=== PATIENT | female | born 1980 | race Caucasian/White ===

== ENCOUNTER → 2022-08-23 | Outpatient (CLI) | payer SELFPAY | END | disposition home or self-care (01) | PROVIDERS: Referring Provider Nurse Practitioner; Visit Provider Nurse Practitioner | DX: E03.9 Hypothyroidism, unspecified (principal) | CPT/HCPCS: 84443 ==

== ENCOUNTER → 2025-08-19 | Outpatient (CLI) | payer OTHER, SELFPAY ==
--- OUTSIDE RECORDS SUMMARY | 2025-08-19 22:06 | XMS RPT_ITS | CCD ---
Author Organization [facility] Care Team Providers Care Vessel Crew Member Name Role Phone Estefany Hong Attending Unavailable PROVIDER, UNKNOWN Referring Unavailable RHONDA SLATER Primary Care Unavailable PROVIDER, UNKNOWN Referring Unavailable RHONDA SLATER Primary Care Unavailable Judd Brar Attending Unavailable Jaiden RAIL MANAGER, Matthias Referring Unavailable Jaiden RAIL MANAGER, [place] Attending Unavailable Matthias Neville Primary Care Provider [phone] JOHN LEON Attending Unavailable MATTHIAS NEVILLE Primary Care Unavailable ESTEFANY FERRO Attending Unavail ESTEFANY Zelaya Referring Unavail able MATTHIAS NEVILLE Primary Care Unavailable GELY NICOLAS-ESTEFANY ARGUETA Attending Unavail able MATTHIAS NEVILLE Primary Care Unavailable MATTHIAS NEVILLE Primary Care Unavailable Allergies Allergy Classification Reported Allergen(s) Allergy Type Date of Onset Reaction(s) Facility (2 sources) Cat Hair Extract Drug Allergy 04-23-2015 [facility] (2 sources) Ibuprofen Drug Allergy 02-02-2024 [facility] (2 sources) Mefenamate Drug Allergy 03-25-2012 [facility] Medications Current Medications Medication Drug Class(es) Dates Sig (Normalized) Sig (Original) doxycycline hyclate 100 mg oral capsule (1 source) Tetracycline-cla ss Drug Start: 02-02-2024 End: 02-09-2024 take 1 capsule by mouth twice daily doxycycline (Vibramycin) 100 MG capsule Indications: Cellulitis of finger of left hand Take 1 capsule (100 mg) by mouth 2 times daily for 7 days. 14 capsule 0 02/02/2024 02/09/2024 Active levothyroxine sodium 0.05 mg oral tablet (3 sources) l-Thyroxine Start: 01-12-2024 take 1 tablet by mouth once daily levothyroxine (Synthroid, Levoxyl) 50 MCG tablet Take 50 mcg by mouth daily. 01/12/2024 Active Start: 08-14-2022 take 25 ug by mouth once daily Levothyroxine Active 25 MCG PO DAILY August 14, 2022 12:00am mupirocin 0.02 mg/mg topical ointment (1 source) RNA Synthetase Inhibitor Antibacterial Start: 02-02-2024 End: 02-09-2024 mupirocin (Bactroban) 2 % ointment Indications: Cellulitis of finger of left hand Apply topically 2 times daily for 7 days. 1 g 0 02/02/2024 02/09/2024 Active Problems Active Problems Problem Classification Problem Date Documented Da te Episodic/Chronic Nonmalignant breast conditions (2 sources) Other specified disorders of breast; Translations: [Other specified disorders of breast] Onset: 12-06-2018 Episodic Nutritional deficiencies (2 sources) Vitamin D deficiency; Translations: [Vitamin D deficiency, unspecified] Onset: 12-31-2019 07-17-2022 Chronic Nutritional deficiencies (1 source) Serum iron low; Translations: [Iron deficiency] Episodic Other screening for suspected conditions (not mental disorders or infectious disease) (4 sources) Other abnormal and inconclusive findings on diagnostic imaging of breast; Translations: [Encounter for screening mammogram for malignant neoplasm of breast] Onset: 12-06-2018 Episodic Residual codes; unclassified (2 sources) Family history of malignant neoplasm of breast; Translations: [Family history of malignant neoplasm of breast] Onset: 12-06-2018 Episodic Skin and subcutaneous tissue infections (3 sources) Cellulitis of finger of left hand; Translations: [Cellulitis of left finger] Onset: 02-02-2024 02-02-2024 Episodic Thyroid disorders (4 sources) Hypothyroidism; Translations: [Hypothyroidism, unspecified] Onset: 12-31-2019 07-17-2022 Chronic Past or Other Problems Problem Classification Problem Date Documented Da te Episodic/Chronic Other skin disorders (2 sources) Alopecia; Translations: [Nonscarring hair loss, unspecified] Onset: 04-24-2015 07-17-2022 Episodic Results Test Name Value Interpretation Reference Range Facil ity [facility] Physician Progress No tomas 01-22-2025 [facility] Physician Progress Note SITA BORGES :1980 [facility]:[phone] Registration Date:01/16/2025 Assessment/Plan This Visit Diagnosis 1. Well woman exam Z01.419 2. Colon cancer screening Z12.11 recommended colonoscopy 3. Family history of breast cancer in male Z80.3 recommended genetic testing 4. Perimenopause N95.1 reviewed expectations Medication Reconciliation What When Instructions Unchanged levothyroxine (levothyroxine 50 mcg (0.05 mg) oral tablet) 0 Refill(s) Chief Complaint Annual, 08/31/23 pap neg/hpv neg mammo-neg 11/22/24 lmp: unsure within the month History of Present Illness Annual not due for pap mammo 2024 regular periods recommend BRCA due for GF has breast cancer she declines- I tried to encourage she states she wouldn't want all of the extra testing anyway encouraged her for her children and try to prevent the need for chemo and radiation more intense screening all of her uncles have prostate cancer she doesn't know if they were tested again recommend myrisk testing hotflashes crazy normal periods menarche 14 perimenopause discussed recommended colonoscopy screening she has hemorrhoids gave her digestive disease info she wanted a female has neck pain- ear pain no LAD Physical Exam Vitals & Measurements BP: 120/70 HT: 160 cm WT: 60.7 kg BMI: 23.71 Depression Screening Scores Initial Depression Screen Score: 0 (01/16/25 09:43:00) Fall Risk Assessment Is the patient ambulatory (mobile): Yes (01/16/25 09:43:00) Have you had a fall within the past: No (01/16/25 09:43:00) Have you had 2 or more falls in the past: No (01/16/25 09:43:00) Constitutional: Appears appropriate for age, non-toxic, and comfortable. No signs of apparent distress present. Speech is clear and appropriate. Stand comfortably erect. Patient is cooperative. VSS and reviewed Eyes: Full range of extra-ocular motion. Conjunctivae clear. Neck: supple and no thyromegaly Respiratory: Chest expansion is adequate bilaterally. Abdomen: Soft and Non-tender, Non distended Musculoskeletal: Walks with a normal gait. Motor strength is intact Ext: No C/C/E Skin: Warm and dry with no evidence of unusual rashes or suspicious lesions. Neurological: Alert and oriented x 3. Mood is normal. Extremities: No clubbing, Cyanosis or edema BACK SEWER EXAM: Breast exam: normal bilateral breast tissue, no skin changes no masses and no nipple discharge, no LAD Pelvic Exam: Ext Gen: normal Vulva anatomy no rash Perineum: no lesions and intact Vagina: no cystocele or rectocele vaginal mucosa healthy pink Cervix: no CMT, discharge present normal Bladder: non tender on palpation Uterus: normal size and mobile midline, NT adnexa: NT and no masses Pelvic muscles: normal muscle tauntness/support OB History History (3,0,1,3) # 1 Baby 1 Outcome Date: 2008 Outcome or Result: Spontaneous Gest Age: -- Outcome: Demise Sex: -- # 2 Baby 1 Outcome Date: 08/31/2010 Outcome or Result: Vaginal Gest Age: 39 weeks Outcome: Live Sex: Female Wt: 2665 g Child's Name: [facility]: Dr. Vera # 3 Baby 1 Outcome Date: 08/13/2012 Outcome or Result: Vaginal Gest Age: 40 weeks Outcome: Live Sex: Male Wt: 3799 g Complications: Shoulder dystocia Child's Name: [facility]: Dr. Brar # 4 Baby 1 Outcome Date: 06/15/2014 Outcome or Result: Gest Age: 40 weeks Outcome: Live Sex: Male Wt: 3969 g Hospital: Dr. 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 Pancreatic cancer: Grandfather. Prostate cancer..: Grandfather. Health Status Family Member(s) Normal [facility] Phone Msgon 03-10-2025 Phone Msg - From: Carolineandria Catrachita Sent: 12/09/2024 11:46:32 EDT Subject: RESCHEDULE Caller Name: SITA BORGES; Caller Number: H L/V/M TO RESCHEDULE ON 12/27/2024 DO TO OUT OF OFFICE Normal [facility] MAMM DIAG BI TOMOon 11-22-19 MAMM DIAG BI ZIYAD DIAGNOSTIC BILATERAL DIGITAL MAMMOGRAM WITH TOMOSYNTHESIS. UNILATERAL RIGHT BREAST ULTRASOUND, LIMITED. ULTRASOUND OF THE RIGHT AXILLA. Clinical History : Pain/tenderness in the lower outer right breast for 2 months. Persistent large right axillary lymph nodes which and large and become tender around menses. Comparison Studies: 01/15/2021. Mammographic findings: 2D and tomosynthesis images were reviewed at 1 mm slice thickness. The breasts are heterogeneously dense, which may obscure small masses. No suspicious masses or suspicious calcifications are identified in either breast. Normal-sized lymph nodes are seen in both axillae. What may be an enlarged lymph node or fatty tissue is seen more superficially in the upper right axilla. The digital mammogram has been reviewed with the aid of CAD. Targeted ultrasound of the area of concern in the right breast, in the 7:00 position, shows dense fibroglandular tissue. No discrete solid or cystic lesion or abnormal acoustic shadowing is seen. Ultrasound of the right axilla shows 2 normal-appearing lymph nodes with fatty chavez and thin cortices. These measure 0.8 x 0.5 x 0.6 cm in diameter with a cortical thickness of 1 mm, and 0.9 x 0.5 x 0.8 cm in diameter with a cortical thickness of 1 mm. No enlarged or thickened lymph nodes are seen. The palpable lesions appear to be fatty tissue without circumscribed margins. IMPRESSION AND RECOMMENDATION: No mammographic evidence of malignancy. No apparent axillary adenopathy. Dense fibroglandular tissue in the area of pain in the 7:00 position of the right breast without discrete mass. Normal right axillary lymph nodes. Fatty tissue in the areas of concern in the right axilla. Recommendation is for the patient to return in one year for annual mammogram with tomosynthesis. Category 2: Benign finding BREAST TISSUE CAN BE EITHER DENSE OR NOT DENSE. DENSE TISSUE MAKES IT HARDER TO FIND BREAST CANCER ON A MAMMOGRAM AND ALSO RAISES THE RISK OF DEVELOPING BREAST CANCER. YOUR BREAST TISSUE IS DENSE. IN SOME PEOPLE WITH DENSE TISSUE, OTHER IMAGING TESTS IN ADDITION TO A MAMMOGRAM MAY HELP FIND CANCERS. TALK YOUR HEALTHCARE PROVIDER ABOUT BREAST DENSITY, RISKS FOR BREAST CANCER, AND YOUR INDIVIDUAL SITUATION. Electronically signed by: Kye Ellis MD 11/22/2024 11:16 AM EST RP Normal [facility] Comment on above: Order Comment: Order ed on Fin# [id number] Result Comment: Tech nologist: MATHEW Dictated By: KYE ELLIS MD Signed By: KYE ELLIS MD Signed Out: 11/22/24 17:51:48 US BREAST RIGHT LIMITEDon US BREAST RIGHT LIMITED DIAGNOSTIC BILATERAL DIGITAL MAMMOGRAM WITH TOMOSYNTHESIS. UNILATERAL RIGHT BREAST ULTRASOUND, LIMITED. ULTRASOUND OF THE RIGHT AXILLA. Clinical History : Pain/tenderness in the lower outer right breast for 2 months. Persistent large right axillary lymph nodes which and large and become tender around menses. Comparison Studies: 01/15/2021. Mammographic findings: 2D and tomosynthesis images were reviewed at 1 mm slice thickness. The breasts are heterogeneously dense, which may obscure small masses. No suspicious masses or suspicious calcifications are identified in either breast. Normal-sized lymph nodes are seen in both axillae. What may be an enlarged lymph node or fatty tissue is seen more superficially in the upper right axilla. The digital mammogram has been reviewed with the aid of CAD. Targeted ultrasound of the area of concern in the right breast, in the 7:00 position, shows dense fibroglandular tissue. No discrete solid or cystic lesion or abnormal acoustic shadowing is seen. Ultrasound of the right axilla shows 2 normal-appearing lymph nodes with fatty chavez and thin cortices. These measure 0.8 x 0.5 x 0.6 cm in diameter with a cortical thickness of 1 mm, and 0.9 x 0.5 x 0.8 cm in diameter with a cortical thickness of 1 mm. No enlarged or thickened lymph nodes are seen. The palpable lesions appear to be fatty tissue without circumscribed margins. IMPRESSION AND RECOMMENDATION: No mammographic evidence of malignancy. No apparent axillary adenopathy. Dense fibroglandular tissue in the area of pain in the 7:00 position of the right breast without discrete mass. Normal right axillary lymph nodes. Fatty tissue in the areas of concern in the right axilla. Recommendation is for the patient to return in one year for annual mammogram with tomosynthesis. Category 2: Benign finding BREAST TISSUE CAN BE EITHER DENSE OR NOT DENSE. DENSE TISSUE MAKES IT HARDER TO FIND BREAST CANCER ON A MAMMOGRAM AND ALSO RAISES THE RISK OF DEVELOPING BREAST CANCER. YOUR BREAST TISSUE IS DENSE. IN SOME PEOPLE WITH DENSE TISSUE, OTHER IMAGING TESTS IN ADDITION TO A MAMMOGRAM MAY HELP FIND CANCERS. TALK YOUR HEALTHCARE PROVIDER ABOUT BREAST DENSITY, RISKS FOR BREAST CANCER, AND YOUR INDIVIDUAL SITUATION. 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 SHE STATED SHE ALWAYS SETS OFF THE ALARMS AND HAS VERY DENSE BREAST. SHE WOULD LIKE TO DIET CONSULTANT THE ORDER ON 10/24/24. SHE SCHEDULE HER ANNUAL WITH DR HONG FOR 12/27/24. BEST CONTACT NUMBER IS [phone] THANK YOU RH From: Carla Rizvi To: ESTEFANY FERRO; Sent: 10/23/2024 11:50:40 EST Subject: FW: DIAGNOSTIC MAMM ORDER Actions: Message Caller Name: SITA BORGES; Caller Number: H Submitted: Order:US BREAST RIGHT LIMITED Details: 10/23/2024, Routine, FIBROCYSTIC BREAST DISEASE, Ambulatory, Dense breast Signed by ESTEFANY FERRO 10/23/2024 12:51:00 EST Submitted: Order:MAMM DIAG BI ZIYAD Details: 10/23/2024, Routine, FIBROCYSTIC BREAST DISEASE, Ambulatory, Dense breast Signed by ESTEFANY FERRO 10/23/2024 12:50:00 EST Submitted: Order:US BREAST LEFT LIMITED Details: 10/23/2024, Routine, FIBROCYSTIC BREAST DISEASE, Ambulatory, Dense breast Signed by ESTEFANY FERRO 10/23/2024 12:51:00 EST called patient to let her know will apply to deductible and sometime the Breast centers will not do a bilateral diagnostic without a recent screening. It looks like it has been 3 years. Identified vm- message left Normal [facility] CBC W Auto Differential pane l (Bld)on 07-20-2024 Basophils (Bld) [#/Vol] 33 10*3/uL [employer] Basophils/100 WBC (Bld) 0.5 % [facility] Eosinophils (Bld) [#/Vol] 130 10*3/uL [facility] Eosinophils/100 WBC (Bld) 2.0 % [facility] Erythrocyte distribution width (RBC) [Ratio] 13.4 % 11.0 - 15.0 % [employer] [facility] Hematocrit (Bld) [Volume fraction] 42.7 % 35.0 - 45.0 % [facility] Hemoglobin (Bld) [Mass/Vol] 13.6 g/dL 11.7 - 15.5 g/dL [facility] Interpretation and review of laboratory results Abnormal [facility] Lymphocytes (Bld) [#/Vol] 9 10*3/uL [facility] Lymphocytes/100 WBC (Bld) 32.6 % [facility] MCH (RBC) [Entitic mass] 26.4 pg Low 27.0 - 33.[address] [facility] MCHC (RBC) [Mass/Vol] 31.9 g/dL Low 32.0 - 36.0 g/dL [facility] Comment on above: For adults, a slight decrease in the calculated MCHC value (in the range of 30 to 32 g/dL) is most likely not clinically significant; however, it should be interpreted with caution in correlation with other red cell parameters and the patient's clinical condition. MCV (RBC) [Entitic vol] 82.9 fL 80.0 - 100.0 fL [facility] Monocytes (Bld) [#/Vol] 507 10*3/uL [facility] Monocytes/100 WBC (Bld) 7.8 % [facility] Neutrophils (Bld) [#/Vol] 3712 10*3/uL [facility] Neutrophils/100 WBC (Bld) 57.1 % [facility] Platelet mean volume (Bld) [Entitic vol] 11.5 fL 7.5 - 12.5 fL [facility] Platelets (Bld) [#/Vol] 245 10*3/uL [facility] RBC (Bld) [#/Vol] 5.15 10*6/uL High [facility] WBC (Bld) [#/Vol] 6.5 10*3/uL [facility] Comprehensive metabolic 1998 panelon 07-20-2024 Albumin [Mass/Vol] 4.2 g/dL 3.6 - 5.1 g/dL [facility] Albumin/Globulin [Mass ratio] 1.4 {ratio} [facility] ALP [Catalytic activity/Vol] 68 U/L 31 - 125 U/L [facility] ALT [Catalytic activity/Vol] 11 U/L 6 - 29 U/L [facility] AST [Catalytic activity/Vol] 16 U/L 10 - 35 U/L [facility] Bilirubin [Mass/Vol] 0.4 mg/dL 0.2 - 1.2 mg/dL [facility] Calcium [Mass/Vol] 9.0 mg/dL 8.6 - 10. 2 mg/dL [facility] Chloride [Moles/Vol] 102 mmol/L 98 - 110 mmol/L [facility] CO2 [Moles/Vol] 28 mmol/L 20 - 32 mmol/L [facility] Creatinine [Mass/Vol] 0.73 mg/dL 0.50 - 0.99 mg/dL [facility] GFR/1.73 sq M.predicted among non-blacks MDRD (S/P/Bld) [Vol rate/Area] 103 mL/min/{1.73_m2} > OR = 60 mL/min/1.73m2 [facility] Globulin (S) [Mass/Vol] 2.9 g/dL [facility] Glucose [Mass/Vol] 86 mg/dL 65 - 139 mg/dL [facility] Comment on above: Non-fasting reference interval Potassium [Moles/Vol] 4.6 mmol/L 3.5 - 5.3 mmol/L [facility] Protein [Mass/Vol] 7.1 g/dL 6.1 - 8.1 g/dL [facility] Sodium [Moles/Vol] 138 mmol/L 135 - 146 mmol/L [facility] Urea nitrogen [Mass/Vol] 10 mg/dL 7 - 25 mg/dL [facility] Urea nitrogen/Creatinine [Mass ratio] SEE NOTE: [facility] Comment on above: Not Reported: BUN an d Creatinine are within reference range. No Panel Informationon 07-20 [facility] TSHon 07-20-2024 TSH Qn 1.71 m[IU]/L mIU/L [facility] Comment on above: Reference Range > or = 20 Years 0.40-4.50 Ranges First trimester 0.26-2.66 Second trimester 0.55-2.73 Third trimester 0.43-2.91 A duplicate report has been faxed to the following: Faxed to: [phone] on: 07/20/24 01:38 Office Visiton 02-02-2024 Follow-up visit [id number] Sita Borges 1980 F Date Provider Department [id number] Family History Problem Relation Age of Onset No Known Problems Son Other Other Comments: nephew-esophageal atresia No Known Problems Maternal Grandfather No Known Problems Father No Known Problems Daughter No Known Problems Paternal Grandmother Breast cancer Maternal Grandmother No Known Problems Son No Known Problems Sister Cancer Paternal Grandfather Comments: pancreatic, breast No Known Problems Mother No Known Problems Brother Family Status - Relation Status Age at Son Alive Other Maternal Grandfather Father Alive Daughter Alive Paternal Grandmother Maternal Grandmother Son Alive Sister Alive Paternal Grandfather Mother Alive Brother Alive Level of Service:01373 [place] OFFICE/OUTPATIENT ESTABLISHED LOW MDM 20 MIN Reason for Visit and Comments: Hand Pain [119612] - Left hand pain; started monday [facility] Progress Noteon 02-02-2024 Progress Note Subjective: Patient: Sita Borges is a 43 y.o. female Patient presents to urgent care today with concerns for left hand pain X 3 days. Patient states left hand pain started on Monday night. Patient denies any injury or trauma to left hand. Patient states she was getting a crown done at her dentist on Monday and was squeezing a stress ball during procedure. However patient does have a small superficial laceration to left hand below the left fifth finger PIP joint that is healing and starting to get scabbed over.. Patient has small amount of erythema and edema to the area and is slightly tender to palpation. Patient has full range of motion of left wrist and left hand. Patient denies any fever, chills, nausea, vomiting, diarrhea, shortness of breath and chest pain. Review of Systems Constitutional: Negative for chills, fatigue and fever. HENT: Negative for congestion, ear discharge, ear pain, rhinorrhea, sinus pressure, sinus pain, sore throat and trouble swallowing. Respiratory: Negative for cough, chest tightness, shortness of breath and wheezing. Cardiovascular: Negative for chest pain and palpitations. Gastrointestinal: Negative for diarrhea, nausea and vomiting. Skin: Positive for wound. Neurological: Negative for dizziness, syncope, weakness, light-headedness and headaches. Allergies Allergen Reactions Ibuprofen Swelling Facial Swelling Mefenamic Acid Hives Cat Hair Extract Hives Current Outpatient Medications on File Prior to Visit Medication Sig Dispense Refill levothyroxine (Synthroid, Levoxyl) 50 MCG tablet Take 50 mcg by mouth daily. No current facility-administered medications on file prior to visit. Past Medical History: Diagnosis Date Acquired hypothyroidism 04/28/2015 Alopecia 04/24/2015 Constipation Fracture Lt arm 4th grade Localized swelling, mass and lump, neck 01/30/2019 seen by ENT- CT neck declined by patient (enlarged nodes) Threatened premature labor Vitamin D deficiency 12/31/2019 Social History Tobacco Use Smoking status: Never Smokeless tobacco: Never Substance Use Topics Alcohol use: No Alcohol/week: 0.0 standard drinks of alcohol Objective: BP (!) 142/82 Pulse 94 Temp 36.6 ?C (97.8 ?F) Resp 17 Wt 124 lb (56.2 kg) SpO2 98% BMI 21.97 kg/m? Physical Exam Vitals and nursing note reviewed. Constitutional: General: She is awake. She is not in acute distress. Appearance: Normal appearance. She is normal weight. She is not ill-appearing or toxic-appearing. Cardiovascular: Rate and Rhythm: Normal rate and regular rhythm. Pulmonary: Effort: Pulmonary effort is normal. Breath sounds: Normal breath sounds. Musculoskeletal: General: Normal range of motion. Skin: General: Skin is warm and dry. Findings: Wound present. Comments: Patient has a small less than 0.5 cm superficial laceration to the area noted above. Area around healing scabbed over laceration is erythematous and slightly edematous. Area is slightly tender to palpation and warm to palpation. No purulent drainage noted. Neurological: General: No focal deficit present. Mental Status: She is alert and oriented to person, place, and time. Mental status is at baseline. Psychiatric: Mood and Affect: Mood normal. Behavior: Behavior normal. Behavior is cooperative. Thought Content: Thought content normal. Judgment: Judgment normal. Assessment 1. Cellulitis of finger of left hand Plan Diagnoses and all orders for this visit: Cellulitis of finger of left hand - doxycycline (Vibramycin) 100 MG capsule; Take 1 capsule (100 mg) by mouth 2 times daily for 7 days. - mupirocin (Bactroban) 2 % ointment; Apply topically 2 times daily for 7 days. Due to patient's symptoms and clinical evaluation I have high suspicion for cellulitis at this time. Educated patient on medications prescribed today in office and education provided in AVS.I also advised patient to monitor for worsening signs of infection including: worsening redness, swelling, erythematous streaking, new onset drainage, foul odor, and or flu like symptoms such as fever, chills and body aches. If patient experiences any of the aforementioned symptoms, prompt ED evaluation recommended as patient may require IV antibiotics at that time. At the present time, I feel conservative management with oral antibiotics, as well as keeping site clean and dry, doing necessary dressing changes and monitoring for worsening symptoms to be appropriate at this time given mild nature of presentation. Educated patient to follow-up with PCP or proceed to ER as discussed above for worsening or persistent symptoms. Patient understands and agreeable to treatment plan. John Leon NP 02/02/24 1:13 PM If symptoms do not improve, worsen, or new symptoms develop, see PCP for further evaluation. Normal [facility] Thyroid Stim Hormone (TSH)on 08-24-2022 TSH 1.90 uIU/mL Normal 0.358-3.74 [facility] Comment on above: Performed By: #### L [phone] #### [facility] [address] 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 Allergies As of Date: 12/22/2020 Noted Allergy Reaction PONSTEL (MEFENAMIC ACID) 03/25/2012 4 - Hives Date Reviewed: 08/12/2019 Reviewed by: Eliana (Rn) MICKY Cueto - Fully Assessed Reason for Visit: Appointment [186] Prescriptions as of 12/22/2020 Sig: PAMPRIN MULTI-SYMPTOM ORAL Take by mouth. 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 REASON FOR EXAM: clinical finding. INDICATED PROBLEM: Indicated problem(s): right breast palpable abnormality for 6 weeks Right breast pain. PROCEDURE: MG BREAST TOMOSYNTHESIS BL: OCTOBER 15, 2019 - 2D/3D Procedure 3D Bilateral CC and MLO view(s) were taken. 2D Bilateral CC and MLO view(s) were taken. Prior study comparison: December 19, 2018, right breast MG breast tomosynthesis right performed at [facility]. December 06, 2018, bilateral MG breast tomosynthesis bl scr performed at [facility]. November 17, 2017, bilateral MG breast tomosynthesis bl performed at [facility]. November 17, 2017, right breast US breast limited right performed at [facility]. TISSUE DENSITY: The breast tissue is heterogeneously dense, which could obscure underlying abnormalities. FINDINGS: This is a 39-year-old who presents with right axillary palpable lumps as well as a right breast palpable lump. DIAGNOSTIC BILATERAL BREAST MAMMOGRAM: There are no suspicious masses and no suspicious calcifications present in either breast. Symmetric bilateral similar appearing lymph nodes are present with normal morphology. An asymmetry in the lateral aspect of the left breast posteriorly represents overlapping glandular tissue on tomosynthesis imaging. The patient placed a round open skin marker at the site of the palpable right breast lump which overlies the central lateral aspect at middle to posterior depth. Deep to the marker overlapping glandular tissue is present. A round open skin marker was placed at the site of the right axillary lump which overlies the pectoralis muscle. Symmetric lymph nodes are present deep to the marker. TARGETED RIGHT BREAST AND AXILLARY ULTRASOUND. The patient points to the palpable lump/focal pain at the 9:00 position 7 cm from the nipple (central lateral) with imaging demonstrating overlapping glandular tissue. The patient points to the axillary palpable lumps with imaging demonstrating two lymph nodes with normal morphology and no thickening of the cortex. The lymph nodes measure 1.3 x 0.9 x 0.7 cm and 0.9 x 0.8 x 0.4 cm. Markings on images: BB's = Nipples; skin lesions Open klamath = Palpable Line = Scar US BREAST LIMITED RIGHT: OCTOBER 15, 2019 - Standard views. Technologist: Zarina Boyle RDMS 2D digital mammography and tomosynthesis imaging were performed and reviewed with CAD. ASSESSMENT: Category 2 Benign (Overall) MG Ziyad Diag-Bl: Category 2 benign finding. 1. No mammographic evidence of malignancy in either breast. 2. The right breast palpable lump with associated focal pain represents overlapping glandular tissue on imaging. 3. The right axillary palpable lumps represent lymph nodes with normal morphology. RECOMMENDATION: Clinical correlation of the right breast. Routine screening mammogram of both breasts in 1 year. Report Dictated on Final Signed Date and Time: 10/15/2019 12:09 pm Signed by: MD JUAN JENNIFER R [facility] US Breast Limited Righton US Breast Limited Right Patient Name: SITA BORGES Ultrasound Exam Date/Time 10/15/2019 12:08:08 EST Exam US Breast Limited Right Ordering Physician [id number] MONACO Accession Number [id number] CPT4 Codes 20460 () Reason For Exam Palp Lumps Report TIME SINCE LAST MAMMOGRAM: Last mammogram was performed 10 months ago. REASON FOR EXAM: clinical finding. INDICATED PROBLEM: Indicated problem(s): right breast palpable abnormality for 6 weeks Right breast pain. PROCEDURE: MG BREAST TOMOSYNTHESIS BL: OCTOBER 15, 2019 - 2D/3D Procedure 3D Bilateral CC and MLO view(s) were taken. 2D Bilateral CC and MLO view(s) were taken. Prior study comparison: December 19, 2018, right breast MG breast tomosynthesis right performed at [facility]. December 06, 2018, bilateral MG breast tomosynthesis bl scr performed at [facility]. November 17, 2017, bilateral MG breast tomosynthesis bl performed at [facility]. November 17, 2017, right breast US breast limited right performed at [facility]. TISSUE DENSITY: The breast tissue is heterogeneously dense, which could obscure underlying abnormalities. FINDINGS: This is a 39-year-old who presents with right axillary palpable lumps as well as a right breast palpable lump. DIAGNOSTIC BILATERAL BREAST MAMMOGRAM: There are no suspicious masses and no suspicious calcifications present in either breast. Symmetric bilateral similar appearing lymph nodes are present with normal morphology. An asymmetry in the lateral aspect of the left breast posteriorly represents overlapping glandular tissue on tomosynthesis imaging. The patient placed a round open skin marker at the site of the palpable right breast lump which overlies the central lateral aspect at middle to posterior depth. Deep to the marker overlapping glandular tissue is present. A round open skin marker was placed at the site of the right axillary lump which overlies the pectoralis muscle. Symmetric lymph nodes are present deep to the marker. TARGETED RIGHT BREAST AND AXILLARY ULTRASOUND. The patient points to the palpable lump/focal pain at the 9:00 position 7 cm from the nipple (central lateral) with imaging demonstrating overlapping glandular tissue. The patient points to the axillary palpable lumps with imaging demonstrating two lymph nodes with normal morphology and no thickening of the cortex. The lymph nodes measure 1.3 x 0.9 x 0.7 cm and 0.9 x 0.8 x 0.4 cm. Markings on images: BB's = Nipples; skin lesions Open klamath = Palpable Line = Scar US BREAST LIMITED RIGHT: OCTOBER 15, 2019 - Standard views. Technologist: Zarina Boyle RDMS 2D digital mammography and tomosynthesis imaging were performed and reviewed with CAD. ASSESSMENT: Category 2 Benign (Overall) MG Ziyad Diag-Bl: Category 2 benign finding. 1. No mammographic evidence of malignancy in either breast. 2. The right breast palpable lump with associated focal pain represents overlapping glandular tissue on imaging. 3. The right axillary palpable lumps represent lymph nodes with normal morphology. RECOMMENDATION: Clinical correlation of the right breast. Routine screening mammogram of both breasts in 1 year. Report Dictated on Final Signed Date and Time: 10/15/2019 12:09 pm Signed by: MD DRAKE, SITA Mccullough [facility] 08-12-2019 [facility] HNO ID: [id number] Author: HAYDEN Croft (Ct) Service: ? Author Type: Clinical Incinerator Attendant Type: Allied Health Filed: 08/12/2019 3:55 AM Note Text: Radiology Service Progress Note PATIENT NAME: Sita Borges DATE OF SERVICE: August 12, 2019 TIME: 3:55 AM PATIENT IDENTITY VERIFICATION COMPLETED USING TWO (2) METHODS: Name and Date of confirmed by patient verbally. PATIENT GENDER DATA: Female. status: : No status: N/A PATIENT RELEVANT IMPLANT DATA REVIEWED: Not Applicable RADIOLOGY DEPARTMENT: General X-ray: Exam(s) Completed: Lower Extremity X-Ray(s): Foot, Right: PERIPHERAL IV DATA: Not applicable SIGNED BY: HAYDEN Croft August 12, 2019 3:55 AM [facility] CBC and Differentialon 08-12 Abs Baso <0.03 Normal <0.11 [facility] Comment on above: Performed By: #### C BCJORDAN CMP #### [facility] [address] [place], [place] [id number] Abs [place] 0.90 k/uL High <0.87 [facility] Comment on above: Performed By: #### C BCMIHAELAF CMP #### [facility] [address] [place], [place] [phone] Abs Neut 4.30 k/uL Normal 1.45-7.50 [facility] Comment on above: Performed By: #### C BCDIF CMP #### [facility] [address] [place], [place] [phone] Basophils/100 WBC (Bld) 0.3 % Normal [facility] Comment on above: Performed By: #### C BCJORDAN CMP #### [facility] [address] [phone] Eosinophils (Bld) [#/Vol] 0.28 10*3/uL Normal <0.46 [facility] Comment on above: Performed By: #### C BCDIF, CMP #### [facility] [address] [phone] Eosinophils/100 WBC (Bld) 3.6 % Normal [facility] Comment on above: Performed By: #### C BCDIF, CMP #### [facility] [address] Erythrocyte distribution width (RBC) [Ratio] 14.1 % Normal 11.5-15.0 [facility] Comment on above: Performed By: #### C BCMIHAELAF CMP #### [facility] [address] [phone] Hematocrit (Bld) [Volume fraction] 38.7 % Normal 36.0-46.0 [facility] Comment on above: Performed By: #### C BCDIF, CMP #### [facility] [address] Hemoglobin (Bld) [Mass/Vol] 12.1 g/dL Normal 11.5-15.5 [facility] Comment on above: Performed By: #### C BCDIF, CMP #### [facility] [address] [place], [place] [phone] Lymphocytes (Bld) [#/Vol] 2.24 10*3/uL Normal 1.00-4.00 [facility] Comment on above: Performed By: #### C BCDIF, CMP #### [facility] [address] [phone] Lymphocytes/100 WBC (Bld) 28.9 % Normal [facility] Comment on above: Performed By: #### C BCDIF, CMP #### [facility] [address] MCH (RBC) [Entitic mass] 25.3 pG Low 26.0-34.0 [facility] Comment on above: Performed By: #### C BCDIF, CMP #### [facility] [address] MCHC (RBC) [Mass/Vol] 31.3 g/dL Normal 30.5-36.0 [facility] Comment on above: Performed By: #### C BCDIF, CMP #### [facility] [address] [phone] MCV (RBC) [Entitic vol] 81.0 fL Normal 80.0-100.0 [facility] Comment on above: Performed By: #### C BCDIF, CMP #### [facility] [address] [phone] Monocytes/100 WBC (Bld) 11.6 % Normal [facility] Comment on above: Performed By: #### C BCDIF, CMP #### [facility] [address] Neutrophils/100 WBC (Bld) 55.6 % Normal [facility] Comment on above: Performed By: #### C BCDIF, CMP #### [facility] [address] Platelet mean volume (Bld) [Entitic vol] 11.5 fL Normal 9.0-12.7 [facility] Comment on above: Performed By: #### C BCDIF, CMP #### [facility] [address] [phone] Platelets (Bld) [#/Vol] 190 10*3/uL Normal 150-400 [facility] Comment on above: Performed By: #### C BCDIF, CMP #### [facility] [address] [phone] RBC (Bld) [#/Vol] 4.78 10*6/uL Normal 3.90-5.20 [facility] Comment on above: Performed By: #### C BCDIF, CMP #### [facility] [phone] WBC (Bld) [#/Vol] 7.74 10*3/uL Normal 3.70-11.00 [facility] Comment on above: Performed By: #### C BCDIF, CMP #### [facility] [phone] Comp Metabolic Panelon 08-12 Albumin [Mass/Vol] 4.1 g/dL Normal 3.9-4.9 [facility] Comment on above: Performed By: #### C BCDIF, CMP #### [facility] [address] [address] ALP [Catalytic activity/Vol] 63 U/L Normal 34-123 [facility] Comment on above: Performed By: #### C BCDIF, CMP #### [facility] [address] [address] ALT [Catalytic activity/Vol] 10 U/L Normal 7-38 [facility] Comment on above: Performed By: #### C BCDIF, CMP #### [facility] [address] [address] Anion gap [Moles/Vol] 11 mmol/L Normal 9-18 [facility] Comment on above: Performed By: #### C BCDIF, CMP #### [facility] [address] [address] AST [Catalytic activity/Vol] 18 U/L Normal 13-35 [facility] Comment on above: Performed By: #### C BCDIF, CMP #### [facility] [address] [address] Bilirubin [Mass/Vol] 0.2 mg/dL Normal 0.2-1.3 [facility] Comment on above: Performed By: #### C BCDIF, CMP #### [facility] [address] [address] Calcium [Mass/Vol] 9.2 mg/dL Normal 8.5-10.2 [facility] Comment on above: Performed By: #### C BCDIF, CMP #### [facility] [address] [address] Chloride [Moles/Vol] 104 mmol/L Normal 97-105 [facility] Comment on above: Performed By: #### C BCDIF, CMP #### [facility] [address] [address] CO2 [Moles/Vol] 26 mmol/L Normal 22-30 [facility] Comment on above: Performed By: #### C BCDIF, CMP #### [facility] [address] [address] Creatinine [Mass/Vol] 0.71 mg/dL Normal 0.58-0.96 [facility] Comment on above: Performed By: #### C FIDELF, ANN-MARIE #### [facility] [address] [facility] [phone] eGFR- Amer. >60 Normal [facility] Comment on above: Performed By: #### C BCMIHAELAF, CMP #### [facility] [address] [facility] [phone] GFR/1.73 sq M predicted among non-blacks MDRD (S/P/Bld) [Vol rate/Area] mL/min/{1.73_m2} Normal [facility] Comment on above: Result Comment: eGFR (Estimated GFR) Units of measure: mL/min/1.73 meters squared eGFR is derived from the reexpressed MDRD Study equation using the following parameters: serum creatinine, age, gender and race. The creatinine assay has been calibrated to be traceable to IDMS. An eGFR <60 mL/min/1.73m2 for >3 months is consistent with chronic kidney disease. Refer to KDOQI guidelines for clinical interpretation. In patients with unstable renal function, e.g. those with acute kidney injury, the eGFR may not accurately reflect actual GFR. Performed By: #### C BCDIF, CMP #### [facility] [address] [place] [address] Glucose [Mass/Vol] 102 mg/dL High 74-99 [facility] Comment on above: Result Comment: The [place] Diabetes Association (ADA) provides guidance for cutoff values for fasting glucose and random glucose. The ADA defines fasting as no caloric intake for at least 8 hours. Fasting plasma glucose results between 100 to 125 mg/dL indicate increased risk for diabetes (prediabetes). Fasting plasma glucose results greater than or equal to 126 mg/dL meet the criteria for diagnosis of diabetes. In the absence of unequivocal hyperglycemia, results should be confirmed by repeat testing. In a patient with classic symptoms of hyperglycemia or hyperglycemic crisis, random plasma glucose results greater than or equal to 200 mg/dL meet the criteria for diagnosis of diabetes. Reference: Standards of Medical Care in Diabetes 2016, [place] [employer] Association. Diabetes Care. 2016.39(Suppl 1). Performed By: #### C BCDIF, CMP #### [facility] [address] [facility] [phone] Potassium [Moles/Vol] 4.1 mmol/L Normal 3.7-5.1 [facility] Comment on above: Performed By: #### C BCDIF, CMP #### [facility] [address] [phone] Protein [Mass/Vol] 7.5 g/dL Normal 6.3-8.0 [facility] Comment on above: Performed By: #### C BCDIF, CMP #### [facility] [phone] Sodium [Moles/Vol] 141 mmol/L Normal 136-144 [facility] Comment on above: Performed By: #### C BCDIF, CMP #### [facility] [address] [phone] Urea nitrogen [Mass/Vol] 11 mg/dL Normal 7-21 [facility] Comment on above: Performed By: #### C BCDIF, CMP #### [facility] [address] [phone] ED NOTEon 08-12-2019 ED NOTE HNO ID: [id number] Author: Jing MartinezRn) Mary Lou RN Service: ? Author Type: Registered Nurse Type: ED Notes Filed: 08/12/2019 6:01 AM Note Text: Discharge inst reviewed with pt, discussed follow up with pcp, place pt in post op shoe given crutches. Pt gave return demonstration to show understanding of crutch use. Pt refused discharge vitals stating I just want to get out of here and go home Pt stable using crutches upon departure from ED [facility] ED NOTE HNO ID: [id number] Author: Eliana MartinezRn) Nory, RN Service: ? Author Type: Registered Nurse Type: ED Notes Filed: 08/12/2019 4:36 AM Note Text: Pt took home dose motrin 400 mg [facility] ED NOTE HNO ID: [id number] Author: Eliana MartinezRn) Nory, RN Service: ? Author Type: Registered Nurse Type: ED Notes Filed: 08/12/2019 4:31 AM Note Text: Pt requesting blood work for possible infection to left foot and ease of mind. New orders placed. [facility] ED NOTE HNO ID: [id number] Author: Eliana MartinezRn) MICKY Cueto Service: ? Author Type: Registered Nurse Type: ED Notes Filed: 08/12/2019 4:07 AM Note Text: Pt c/o left foot numbness and pain without known injury. No obvious signs of injury, pulses intact. [facility] ED NOTE HNO ID: [id number] Author: Eliana MartinezRn) MICKY Cueto Service: ? Author Type: Registered Nurse Type: ED Notes Filed: 08/12/2019 4:30 AM Note Text: Pt given ice pack for comfort. [facility] ED PROV NOTEon 08-12-2019 ED PROV NOTE HNO ID: [id number] Author: Diana Leslie MD Service: ? Author Type: Physician Type: ED Provider Notes Filed: 08/12/2019 7:58 AM Note Text: ED Provider Note Patient Name: Sita Borges SERVICE DATE: 08/12/19 History Patient presents with: Pain (foot): right foot no known injury Patient is a 39-year-old female coming in with right foot pain. The foot pain started while while she was walking to bed. The patient denies any injury. She's never had anything like this before. She describes it on the lateral part of her right foot. She had to walk on the inside foot. She thought at first it was a cramp but it did not seem to get better she was unable to sleep. She did not take anything at home for the pain. PAST MEDICAL HISTORY Diagnosis Date - History of hypothyroidism - History of labor - Polyhydramnios PAST SURGICAL HISTORY Procedure Laterality Date - HYSTEROSCOPY; INTRAUT SEPTUM 2008 Dr. Conteh - TUBAL LIGATION HX No family history on file. Social History Tobacco Use - Smoking status: Never Smoker - Smokeless tobacco: Never Used Substance and Sexual Activity - Alcohol use: Not on file - Drug use: Not on file - Sexual activity: Not on file ALLERGIES Allergen Reactions - Ponstel [Mefenamic * Hives Review of Systems Constitutional: Negative for fever. Respiratory: Negative for shortness of breath. Cardiovascular: Negative for chest pain. Gastrointestinal: Negative for vomiting. All other systems reviewed and are negative. Physical Exam BP 123/77 Pulse 92 Temp (Src) 98.1 (Oral) Resp 18 SpO2 100% LMP 08/01/2019 O2 Therapy: Room Air Physical Exam Vitals signs and nursing note reviewed. HENT: Head: Normocephalic and atraumatic. Neck: Musculoskeletal: Neck supple. Cardiovascular: Rate and Rhythm: Normal rate and regular rhythm. Pulmonary: Effort: Pulmonary effort is normal. Breath sounds: Normal breath sounds. Musculoskeletal: Feet: Comments: Tenderness to the right foot. Neurological: Mental Status: She is alert. Diagnostic Testing ED Labs Ordered and Reviewed COMP METABOLIC PANEL - Abnormal; Notable for the following components: Result Value Ref Range Glucose 102 (*) 74 - 99 mg/dL All other components within normal limits CBC + DIFF - Abnormal; Notable for the following components: MCH 25.3 (*) 26.0 - 34.0 pG Abs [place]au 0.90 (*) <0.87 k/uL All other components within normal limits Procedures ED Course / Clinical Impression Clinical Impressions as of Aug 12 545 Right foot pain MDM / Disposition / Plan Patient initial x-ray that was negative. Patient refused her Motrin. She states she did take her own. Patient became upset when her x-ray was normal we do not have a reason for this I said there is no obvious infection. She was requesting blood work obtained a CBC and CMP that was within normal limits after the patient had been here some time this and Motrin that she took did seem to help. This point patient will be discharged home she is advised follow-up with primary care return with any worsening symptoms or concerns. The patient was DISCHARGED: Counseled patient and spouse regarding lab results AND radiology results AND need for follow-up. Discharged home with verbal and written instructions. They were instructed to return as needed for persistent or worsening symptoms or any new concerns. Condition at time of disposition: stable SIGNATURE: MD Diana Wilcox MD 08/12/19 0758 [facility] XR FOOT 3V AP/LAT/OBL RTon 1 10-12-2018 XR FOOT 3V AP/LAT/OBL RT * * *Final Report* * * DATE OF EXAM: Aug 12 2019 3:50AM MDX [id number] - XR FOOT 3V AP/LAT/OBL RT / PROCEDURE REASON: Bone pain, foot * * * * Physician Interpretation * * * * XR FOOT 3V AP/LAT/OBL RT INDICATION: Pain COMPARISON: None TECHNIQUE: AP, lateral and oblique views right foot, 3 films. FINDINGS: No dislocation. No acute fracture identified. No focal soft tissue abnormality. No radiopaque foreign body. No subcutaneous gas. IMPRESSION: No acute osseous or joint abnormality identified. Geography Faculty Member: PSCB Transcribe Date/Time: Aug 12 2019 4:02A Dictated by : ALAN ARMSTRONG MD This examination was interpreted and the report reviewed and electronically signed by: ALAN ARMSTRONG MD on Aug 12 2019 4:04AM EST [id number] N [facility] MG Breast Tomosynthesis Diag nostic Righton 12-19-2018 MG Breast Tomosynthesis Diagnostic Right Patient Name: SITA BORGES Mammography Exam Date/Time 12/19/2018 10:37:06 EDT Exam MG Breast Tomosynthesis Uni Ordering Physician JUDD BRAR Accession Number [id number] CPT4 Codes 20733 (MG Breast Tomosynthesis Right), 78344 (MG MAMMO 2D DIAGNOSTIC) Reason For Exam abnormal mammogram N64.89 Report PATIENT HISTORY: Patient had first child at age 30. Family history of breast cancer at age 57 in maternal grandmother, prostate cancer at age 70 in paternal grandfather. Patient has never smoked. Patient's BMI is 21.3. TIME SINCE LAST MAMMOGRAM: Last mammogram was performed less than 1 month ago. REASON FOR EXAM: addl evaluation requested from abnormal screening. PROCEDURE: MG BREAST TOMOSYNTHESIS RIGHT: DECEMBER 19, 2018 - 2D/3D Procedure 3D views: ML and spot compression MLO view(s) were taken of the right breast. 2D views: ML and spot compression MLO view(s) were taken of the right breast. Prior study comparison: December 06, 2018, bilateral MG breast tomosynthesis bl scr, performed at [facility]. November 17, 2017, bilateral MG breast tomosynthesis bl, performed at [facility]. November 17, 2017, US breast limited right, performed at [facility]. TISSUE DENSITY: The breast tissue is heterogeneously dense, which could obscure underlying abnormalities. FINDINGS: This is a 38-year-old who was called back from screening mammogram dated 12/06/2018 for a right breast asymmetry. DIAGNOSTIC RIGHT BREAST MAMMOGRAM: The 2 mm asymmetry, for which the patient was called back, in the superior quadrant of the right breast posteriorly on MLO tomosynthesis view with surrounding fatty tissue disperses into overlapping glandular tissue without a suspicious underlying mass and without parenchymal distortion. There are no suspicious masses and no suspicious calcifications present in the right breast. DISCUSSION: I discussed the results of this exam with the patient. Markings on images: BB's = Nipples; skin lesions Open k[place] = Palpable Line = Scar 2D digital mammography and tomosynthesis imaging were performed and reviewed with CAD. ASSESSMENT: Category 2 Benign No mammographic evidence of malignancy in the right breast. RECOMMENDATION: Routine screening mammogram of both breasts in 1 year. I discussed the results of this exam with the patient. Report Dictated on Final Signed Date and Time: 12/19/2018 10:45 am Signed by: MD DRAKE, SITA [facility]ccull[facility] MG Breast Tomosynthesis Scr Blon 12-06-2018 MG Breast Tomosynthesis Scr Bl Patient Name: SITA BORGES Mammography Exam Date/Time 12/06/2018 13:59:46 EST Exam MG Breast Tomosynthesis BI Scr Ordering Physician DO HONG MEGHAN J. Accession Number [id number] CPT4 Codes 67256 (MG Breast Tomosynthesis Scr Bl), 01396 (MG MAMMO 2D SCREENING) Reason For Exam screening Report PATIENT HISTORY: Patient had first child at age 30. Family history of breast cancer at age 57 in maternal grandmother, prostate cancer at age 70 in paternal grandfather. Patient has never smoked. Patient's BMI is 21.3. TIME SINCE LAST MAMMOGRAM: Last mammogram was performed 1 year and 1 month ago. REASON FOR EXAM: screening, asymptomatic. PROCEDURE: MG BREAST TOMOSYNTHESIS BL SCR: DECEMBER 06, 2018 - 2D/3D Procedure 3D Bilateral CC and MLO view(s) were taken. 2D Bilateral CC and MLO view(s) were taken. TISSUE DENSITY: The breast tissue is extremely dense, which may lower the sensitivity of mammography. . FINDINGS: Asymmetry is noted in the upper portion of the right breast at posterior depth best delineated on tomographic sequence , probably in the lateral aspect of the breast. There is no other mass or suspicious cluster of microcalcifications. Markings on images: BB's = Nipples; skin lesions Open k[place] = Palpable Line = Scar 2D digital mammography and tomosynthesis imaging were performed and reviewed with CAD. ASSESSMENT: Category 0 Incomplete: need additional imaging evaluation RECOMMENDATION: Follow-up diagnostic mammogram of the right breast. With a follow-up Ultrasound if needed. . Report Dictated on Cancer Risk Assessment: This risk assessment is based on patient provided information collected in a risk survey taken at the time of this examination. Lifetime breast cancer risk: 17.5% - If greater than or equal to 20%, consider annual mammogram and annual screening Breast MRI or follow up in high risk clinic. Is the patient at elevated risk based on the HBOC criteria? No (Hereditary Breast and Ovarian Cancer) - If yes, consider genetic counseling and testing with high risk follow up. HNPCC mutation risk (Ramsey Syndrome): 1% - if greater than or equal to 5%, consider genetic counseling, testing and screening colonoscopy. Final Signed Date and Time: 12/06/2018 3:04 pm Signed by: MD RENETTA, [facility] Vital Signs Date Time Vital Sign Value Performing Clinician Facility 02-02-2024 12:49-0400 Body mass index (BMI) [Ratio] 21.97 kg/m2 John Leon RAIL MANAGER Work Phone: [facility] 02-02-2024 12:49-0400 Body temperature 97.81 [degF] John Leon RAIL MANAGER Work Phone: [facility] 02-02-2024 12:49-0400 Body weight 56.25 kg John Leon RAIL MANAGER Work Phone: [facility] 02-02-2024 12:49-0400 Diastolic blood pressure 82 mm[Hg] John Leon RAIL MANAGER Work Phone: [facility] 02-02-2024 12:49-0400 Heart rate 94 /min John Leon RAIL MANAGER Work Phone: [facility] 02-02-2024 12:49-0400 Respiratory rate 17 /min John Leon RAIL MANAGER Work Phone: [facility] 02-02-2024 12:49-0400 SaO2% (BldA) [Mass fraction] 98 % John Leon RAIL MANAGER Work Phone: [facility] 02-02-2024 12:49-0400 Systolic blood pressure 142 mm[Hg] John Leon RAIL MANAGER Work Phone: [facility] 08-23-2022 19:39-0500 Body height 160.02 cm [facility] Work Phone: 08-12-2022 22:23-0500 Body mass index (BMI) [Ratio] 22.4 kg/m2 [facility] Work Phone: 08-12-2022 22:23-0500 Body temperature 98.2 [degF] [facility] Work Phone: 08-12-2022 22:23-0500 Body weight 57.6 kg [facility] Work Phone: 08-12-2022 22:23-0500 Diastolic blood pressure 72 mm[Hg] [facility] Work Phone: 08-12-2022 22:23-0500 Heart rate 92 /min [facility] Work Phone: 08-12-2022 22:23-0500 Respiratory rate 18 /min [facility] Work Phone: 08-12-2022 22:23-0500 SaO2% (BldA) [Mass fraction] 98 % [facility] Work Phone: 08-12-2022 22:23-0500 Systolic blood pressure 120 mm[Hg] [facility] Work Phone: Encounters Encounter Date Encounter Type Care Provider Facility Start: 01-16-2025 End: 01-16-2025 ambulatory ESTEFANY HONG [facility] Facility:[id number] Y Start: 12-09-2024 ambulatory MATTHIAS NEVILLE Facilit y:AMBMOBGY Start: 11-22-2024 End: 11-22-2024 ambulatory ESTEFANY HONG DO-FACOG Facility:[id number] Start: 07-19-2024 End: 07-22-2024 Orders Only Matthias Neville Work Phone: [facility] Start: 02-02-2024 End: 02-02-2024 ambulatory JOHN LEON [facility] Start: 02-02-2024 End: 02-02-2024 Office outpatient visit 15 minutes John Leon RAIL MANAGER Work Phone: [facility] Comment on above: Cellulitis of finger of left hand (Primary Dx) Start: 08-23-2022 End: 08-23-2022 Patient encounter procedure [facility], Specimen Start: 08-23-2022 End: 08-24-2022 ambulatory Matthias Neville RAIL MANAGER [facility] Work Phone: Start: 08-14-2022 Patient encounter status [facility] Work Phone: Start: 12-19-2018 Patient encounter procedure UNKNOWN PROVIDER [facility] Start: 12-06-2018 Patient encounter procedure Estefany Gely [facility] Procedures Date Procedure Procedure Detail Performing Clinician Start: 07-19-2024 Complete blood count with white cell differential, automated Matthias Neville Work Phone: Start: 07-19-2024 Comprehensive metabo lic panel Matthias Neville Work Phone: Start: 07-19-2024 End: 07-19-2024 Thyrotropin [Units/volume] in Serum or Plasma Matthias Neville Work Phone: Start: 10-15-2019 Mammography John Packer ms RAIL MANAGER Work Phone: Start: 10-19-2006 Microscopic observat ion [Identifier] in Cervix by Cyto stain Matthias Neville Work Phone: Plan of Treatment Date Care Activity Detail Author Start: 2038 RSV Immunization age d 60 or older (1 - 1-dose 60+ series) RSV Immunization aged 60 or older (1 - 1-dose 60+ series) [facility] Start: 2028 Zoster Vaccines (1 of 2) Zoster Vacc ainsley (1 of 2) [facility] Start: 07-19-2025 Thyroid stimulating hormone measurement TSH Level [facility] Start: 06-02-2024 COVID-19 Vaccine ( season) COVID-19 Vaccine ( season) [facility] Start: 06-02-2024 Influenza vaccination [facility] Start: 06-02-2023 COVID-19 Vaccine ( season) COVID-19 Vaccine ( season) [facility] Start: 10-15-2020 Screening for malign ant neoplasm of breast Mammogram [facility] Start: 09-02-2020 DTaP/Tdap/Td Vaccine s (2 - Td or Tdap) DTaP/Tdap/Td Vaccines (2 - Td or Tdap) [facility] Start: 10-19-2009 Screening for malign ant neoplasm of cervix [facility] Start: 2008 Screening for malign ant neoplasm of cervix [facility] Start: 1999 Screening for malign ant neoplasm of cervix Pap Smear [facility] Start: 1997 Hepatitis B Vaccines (1 of 3 - 19+ 3-dose series) Hepatitis B Vaccines (1 of 3 - 19+ 3-dose series) [facility] Start: 1996 Hepatitis C screening Hepatitis C Sc reening [facility] Start: 1990 Depression Screening Depression Scre ening [facility] Start: 1978 HIV screening HIV Screening [facility] Start: 1978 Screening for malign ant neoplasm of colon [facility] Start: 1978 Thyroid stimulating hormone measurement TSH Level [facility] Immunizations Immunization Date Immunization Notes Care Provider Fa krista 06-15-2014 measles, mumps and r ubella virus vaccine John Leon RAIL MANAGER Work Phone: [facility] 08-15-2012 influenza virus vacc ine, unspecified formulation John Leon RAIL MANAGER Work Phone: [facility] 09-02-2010 influenza virus vacc ine, unspecified formulation John Leon RAIL MANAGER Work Phone: [facility] 09-02-2010 tetanus toxoid, redu uzair diphtheria toxoid, and acellular pertussis vaccine, adsorbed John Leon NP Work Phone: [facility] Payers Date Payer Category Payer Unknown 2022 Self-pay 1980 Unknown [id number] [id number] 1980 Unknown [id number] [id number] [id number] 1978 Unknown [id number] [id number] [id number] 1978 Unknown [id number] [id number] [id number] 1978 Unknown [id number] 2.16.8 [id number] Unknown [id number] [id number] [id number] Social History Date Type Detail Facility [facility] Work Phone: Start: 1980 Sex Assigned At Female W [facility] Work Phone: Tobacco smoking stat [facility] Never smoked tobacco [facility] Start: 02-02-2024 Alcohol intake Current non-dr svp marketing of alcohol (finding) [facility] Start: 02-02-2024 Alcohol intake [facility] Start: 02-02-2024 Tobacco use panel [facility] Start: 1980 Sex Assigned At Not on file [facility] History of Present illness Narrative 02-02-2024 John Leon NP - 02/02/2024 12:50 PM EDT Note Date & Type Note Facility 02-02-2024 History of Presen t illness Narrative Images from the original note were not included. Subjective: Patient: Sita Borges is a 43 y.o. female Patient presents to urgent care today with concerns for left hand pain X 3 days. Patient states left hand pain started on Monday night. Patient denies any injury or trauma to left hand. Patient states she was getting a crown done at her dentist on Monday and was squeezing a stress ball during procedure. However patient does have a small superficial laceration to left hand below the left fifth finger PIP joint that is healing and starting to get scabbed over.. Patient has small amount of erythema and edema to the area and is slightly tender to palpation. Patient has full range of motion of left wrist and left hand. Patient denies any fever, chills, nausea, vomiting, diarrhea, shortness of breath and chest pain. Review of Systems Constitutional: Negative for chills, fatigue and fever. HENT: Negative for congestion, ear discharge, ear pain, rhinorrhea, sinus pressure, sinus pain, sore throat and trouble swallowing. Respiratory: Negative for cough, chest tightness, shortness of breath and wheezing. Cardiovascular: Negative for chest pain and palpitations. Gastrointestinal: Negative for diarrhea, nausea and vomiting. Skin: Positive for wound. Neurological: Negative for dizziness, syncope, weakness, light-headedness and headaches. Allergies Allergen Reactions Ibuprofen Swelling Facial Swelling Mefenamic Acid Hives Cat Hair Extract Hives Current Outpatient Medications on File Prior to Visit Medication Sig Dispense Refill levothyroxine (Synthroid, Levoxyl) 50 MCG tablet Take 50 mcg by mouth daily. No current facility-administered medications on file prior to visit. Past Medical History: Diagnosis Date Acquired hypothyroidism 04/28/2015 Alopecia 04/24/2015 Constipation Fracture Lt arm 4th grade Localized swelling, mass and lump, neck 01/30/2019 seen by ENT- CT neck declined by patient (enlarged nodes) Threatened premature labor Vitamin D deficiency 12/31/2019 Social History Tobacco Use Smoking status: Never Smokeless tobacco: Never Substance Use Topics Alcohol use: No Alcohol/week: 0.0 standard drinks of alcohol Objective: BP (!) 142/82 Pulse 94 Temp 36.6 C (97.8 F) Resp 17 Wt 124 lb (56.2 kg) SpO2 98% BMI 21.97 kg/m Physical Exam Vitals and nursing note reviewed. Constitutional: General: She is awake. She is not in acute distress. Appearance: Normal appearance. She is normal weight. She is not ill-appearing or toxic-appearing. Cardiovascular: Rate and Rhythm: Normal rate and regular rhythm. Pulmonary: Effort: Pulmonary effort is normal. Breath sounds: Normal breath sounds. Musculoskeletal: General: Normal range of motion. Skin: General: Skin is warm and dry. Findings: Wound present. Comments: Patient has a small less than 0.5 cm superficial laceration to the area noted above. Area around healing scabbed over laceration is erythematous and slightly edematous. Area is slightly tender to palpation and warm to palpation. No purulent drainage noted. Neurological: General: No focal deficit present. Mental Status: She is alert and oriented to person, place, and time. Mental status is at baseline. Psychiatric: Mood and Affect: Mood normal. Behavior: Behavior normal. Behavior is cooperative. Thought Content: Thought content normal. Judgment: Judgment normal. Assessment 1. Cellulitis of finger of left hand Plan Diagnoses and all orders for this visit: Cellulitis of finger of left hand - doxycycline (Vibramycin) 100 MG capsule; Take 1 capsule (100 mg) by mouth 2 times daily for 7 days. - mupirocin (Bactroban) 2 % ointment; Apply topically 2 times daily for 7 days. Due to patient's symptoms and clinical evaluation I have high suspicion for cellulitis at this time. Educated patient on medications prescribed today in office and education provided in AVS.I also advised patient to monitor for worsening signs of infection including: worsening redness, swelling, erythematous streaking, new onset drainage, foul odor, and or flu like symptoms such as fever, chills and body aches. If patient experiences any of the aforementioned symptoms, prompt ED evaluation recommended as patient may require IV antibiotics at that time. At the present time, I feel conservative management with oral antibiotics, as well as keeping site clean and dry, doing necessary dressing changes and monitoring for worsening symptoms to be appropriate at this time given mild nature of presentation. Educated patient to follow-up with PCP or proceed to ER as discussed above for worsening or persistent symptoms. Patient understands and agreeable to treatment plan. John Leon NP 02/02/24 1:13 PM If symptoms do not improve, worsen, or new symptoms develop, see PCP for further evaluation. documented in this encounter [facility] Progress note 12-10-2020 Note Date & Type Note Facility 12-10-2020 Note HNO ID: [id number] Author: Monisha Bishop Service: ? Author Type: Nurse Practitioner Type: Progress Notes Filed: 12/10/2020 3:59 PM Note Text: Breast Cancer Screening Review Please contact the patient with the following scripting Jorge Pierre MD and your medical team has identified that you are now due for a mammogram for breast cancer screening. We would like to assist you in making an appointment for the mammogram. Additionally, if the patient has not had an appointment in the past 1 year, please arrange. The Mammogram has been ordered/Previously ordered Yes If Yes - forward to PSS for scheduling If No - Order mammogram and forward to PCP for review. Monisha Bishop APRN.CNP [facility] Clinical Note 12-10-2020 Note Date & Type Note Facility 12-10-2020 Note Patient Outreach (FA MPLN) SITA BORGES ([id number]) 1980 F Date Time Provider Department 12/10/20 MONISHA BISHOP) FAMPLDarius During your visit today, we recorded the following information about you: Monisha Bishop APRN.CNP 12/10/2020 3:59 PM Signed Breast Cancer Screening Review Please contact the patient with the following scripting Jorge Pierre MD and your medical team has identified that you are now due for a mammogram for breast cancer screening. We would like to assist you in making an appointment for the mammogram. Additionally, if the patient has not had an appointment in the past 1 year, please arrange. The Mammogram has been ordered/Previously ordered Yes If Yes - forward to PSS for scheduling If No - Order mammogram and forward to PCP for review. Monisha Bishop APRN.CNP Allergies As of Date: 12/10/2020 Noted Allergy Reaction PONSTEL (MEFENAMIC ACID) 03/25/2012 4 - Hives Date Reviewed: 08/12/2019 Reviewed by: Eliana (Rn) MICKY Cueto - Fully Assessed Primary Visit Diagnosis:Encounter for screening mammogram for malignant neoplasm of breast [Z12.31] Order(s):[facility] SCREENING [[id number]] Order #: [id number] FUTURE Prescriptions as of 12/10/2020 Sig: PAMPRIN MULTI-SYMPTOM ORAL Take by mouth. IBUPROFEN 600 MG TABLET Take 1 tablet by mouth every * * DOCUSATE SODIUM 100 MG CAPSULE Take 100 mg by mouth twice da* * VITAMIN ORAL Take 1 tablet by mouth once d* Problem List As Of Date 12/10/2020 Noted Resolved History of hypothyroidism [Z86.39] 07/29/2012 Active labor [[id number]] 08/13/2012 08/13/2012 Encounter Status:Closed by MONISHA BISHOP APRN.CNP on 12/10/20 [facility] Evaluation note Note Date & Type Note Facility Evaluation note Diagnosis Onset Date Wellness examination [facility] Work Phone: Evaluation note Note Date & Type Note Facility Evaluation note Diagnosis Cellulitis of finger of left hand- Primary documented in this encounter [facility] Instructions Attachments Note Date & Type Note Facility Instructions The following attachments cannot be sent through Care Everywhere.Cellulitis (Skin Infection), Adult ED ([place]akh)Doxycycline, ADULT ([place])documented in this encounter [facility] Summary Purpose Family History No Family History Records FoundNo Family History Records FoundNo Family History Records FoundNo Family History Records FoundNo Family History Records FoundNo Family History Records FoundNo Family History Records Found Advance Directives No Advanced Directives Records FoundNo Advanced Directives Records FoundNo Advanced Directives Records FoundNo Advanced Directives Records FoundNo Advanced Directives Records FoundNo Advanced Directives Records FoundNo Advanced Directives Records Found Chief Complaint and Reason for Visit Chief Complaint Annual wellness exam PE labs to be drawn(TSH) Reason for Visit Wellness examination Additional Source Comments INFORMATION SOURCE (unrecogn ized section and content) DATE CREATED AUTHOR [facility]/09/2019 [facility] DATE CREATED AUTHOR AUTHOR'S ORGANIZ ATION 08/12/2019 [facility] DATE CREATED AUTHOR AUTHOR'S ORGANIZ ATION 10/18/2019 [facility] [employer] DATE CREATED AUTHOR AUTHOR'S ORGANIZ ATION 11/05/2021 [facility] DATE CREATED AUTHOR AUTHOR'S ORGANIZ ATION 12/03/2022 [facility] DATE CREATED AUTHOR AUTHOR'S ORGANIZ ATION 02/04/2024 [facility] DATE CREATED AUTHOR AUTHOR'S ORGANIZ ATION 01/24/2025 [facility] Goals (unrecognized section and content) Goals may be documented in a n alternate section Reason for Visit (unrecogniz ed section and content) Reason Comments Hand Pain Left hand pain; [facility] monday Care Teams (unrecognized sec tion and content) Vessel Crew Member Relationship Specialty Start Date End Date Neville, Dora [address] [place], [place] [id number] PCP - General Nurse Practitioner 02/02/24 Vessel Crew Member Relationship Specialty Start Date End Date Neville, Dora [address] [place] [address] PCP - General Nurse Practitioner 02/02/24 FOR RECORDS PERTAINING TO PATIENTS WHO ARE OR HAVE BEEN ENROLLED IN A CHEMICAL DEPENDENCY/SUBSTANCEABUSE PROGRAM, SOME INFORMATION MAY BE OMITTED. This clinical summary was aggregated from multiple sources. Caution should be exercised in using it in the provision of clinical care. This summary normalizes information from multiple sources, and as a consequence, information in this document may materially change the coding, format and clinical context of patient data. In addition, data may be omitted in some cases. CLINICAL DECISIONS SHOULD BE BASED ON THE PRIMARY CLINICAL RECORDS. [facility] [employer] [facility]. provides no warranty or guarantee of the accuracy or completeness of information in this document.
[2025-08-19 22:16] LABS: Hematocrit 39.4 % (37-47); Hemoglobin 12.3 g/dL (12.0-15.0); Immature Granulocytes Count 0.020 X10^3/uL (0.0-0.0); Mean Corp Hgb Conc 31.2 g/dL (32-36); Mean Corpuscular Volume 84.4 fL (81-99); Mean Platelet Vol. 11.8 fl (6.2-12.0); NRBC Flagged by Analyzer 0 % (0-5); Platelet Count 238 K/mm3 (150-450); RBC Distribution Width CV 12.5 % (11.6-14.6); RBC Distribution Width SD 37.9 fl (35.1-43.9); Red Blood Count 4.67 M/mm3 (4.2-5.4); White Blood Count 8.2 K/mm3 (4.4-11.0)
[2025-08-19 22:51] LABS: AST(SGOT) 23 U/L (<=31); Alanine Aminotransfer ALT/SGPT 13 U/L (<=34); Albumin, Serum 4.3 g/dL (3.5-5.0); Alkaline Phosphatase 68 U/L (35-104); Anion Gap 11 (5-15); BUN 10 mg/dL (4-19); BUN/Creat Ratio 15.1 RATIO (10-20); Calcium,Total 9.2 mg/dL (7.6-11.0); Carbon Dioxide 25.3 mmol/L (21.0-32.0); Chloride 101 mmol/L (98-108); Cholesterol 181 mg/dL (<=200); Globulin 3.1 g/dL (2.2-4.2); Glucose 85 mg/dL (70-99); Low Density Lipoprotein Calc. 96 mg/dL; Potassium 3.9 mmol/L (3.3-5.1); Triglycerides 55 mg/dL; Very Low Density Lipoprotein 11 mg/dL (5-40); cholesterol:hdl ratio screen 2.43
== END | disposition home or self-care (01) ==
PROVIDERS: Referring Provider Nurse Practitioner; Visit Provider Nurse Practitioner
DX: Z00.00 Encounter for general adult medical examination without abnormal findings (principal)
CPT/HCPCS: 80053; 80061; 84443; 85025